=== PATIENT | male | born 1955 | race African-American/Black ===

== ENCOUNTER 2017-07-27 21:54 | Emergency (ER) | payer OTHER ==
[~2017-07-27] VITALS: Ht 180.3 cm; Wt 67.8 kg
[~2017-07-27 21:54] MED LIST: CETI-203 PO; ERGO500027 PO; HYDR12.53 PO; LEVO750T5 PO; NITR0.4T SL; TRAM50TA PO
[2017-07-27 23:05] VITALS: BP 143/92
[2017-07-27] MEDS ORDERED: AZIT250T6 PO (23:29)
[2017-07-27] MEDS ORDERED: GUAI-108 PO (23:29)
[2017-07-27] MEDS ORDERED: AZITHROMYCIN 250 MG TABLET. PO ONE (23:30)
--- NOTE | 2017-07-27 23:30 | PHYS DOC ---
Past Medical History Past Medical History: CAD, Hypertension, [place], Other Additional Past Medical Histor: scoliosis, emphysema Past Surgical History: Other Additional Past Surgical Histo: cardiac cath with stent placement Alcohol Use: Occasionally Drug Use: Marijuana Adult General Chief Complaint Chief Complaint: Congestion HPI HPI 61-year-old male complaining of sinus congestion and pressure. He denies headache or stiff neck. Patient does report an occasional dry cough. He is concerned that he may have sinusitis. He describes the yellowy sinus discharge when he blows his nose. No fevers chills sweats or shaking chills Review of Systems Review of Systems Constitutional: Denies fever or chills [] Eyes: Denies change in visual acuity, redness, or eye pain [] HENT: Denies nasal congestion or sore throat [] Respiratory: Denies cough or shortness of breath [] Cardiovascular: No additional information not addressed in HPI [] GI: Denies abdominal pain, nausea, vomiting, bloody stools or diarrhea [] : Denies dysuria or hematuria [] Musculoskeletal: Denies back pain or joint pain [] Integument: Denies rash or skin lesions [] Neurologic: Denies headache, focal weakness or sensory changes [] Endocrine: Denies polyuria or polydipsia [] Current Medications Current Medications Current Medications Medications (Trade) Dose Ordered Sig/Osmani Start Time Stop Time Status Last Admin Dose Admin Azithromycin (Zithromax) 500 mg 1X ONCE 07/27/17 23:30 07/27/17 23:31 DC 07/27/17 23:47 500 MG Allergies Allergies Allergies Coded Allergies Type Severity Reaction Last Updated Verified No Known Drug Allergies 01/07/14 No Physical Exam Physical Exam Well-appearing patient no acute distress mild sinus tenderness frontal and maxillary sinuses. Supple neck normal oropharynx clear lungs regular rate and rhythm benign abdomen normal extremities Constitutional: Well developed, well nourished, no acute distress, non-toxic appearance. [] HENT: Normocephalic, atraumatic, bilateral external ears normal, oropharynx moist, no oral exudates, nose normal. [] Eyes: PERRLA, EOMI, conjunctiva normal, no discharge. [] Neck: Normal range of motion, no tenderness, supple, no stridor. [] Cardiovascular:Heart rate regular rhythm, no murmur [] Lungs & Thorax: Bilateral breath sounds clear to auscultation [] Abdomen: Bowel sounds normal, soft, no tenderness, no masses, no pulsatile masses. [] Skin: Warm, dry, no erythema, no rash. [] Back: No tenderness, no CVA tenderness. [] Extremities: No tenderness, no cyanosis, no clubbing, ROM intact, no edema. [] Neurologic: Alert and oriented X 3, normal motor function, normal sensory function, no focal deficits noted. [] Psychologic: Affect normal, judgement normal, mood normal. [] Current Patient Data Vital Signs Vital Signs Date Time Temp Pulse Resp B/P (MAP) Pulse Ox O2 Delivery O2 Flow Rate FiO2 07/27/17 23:05 101 18 143/92 (109) 100 Room Air 07/27/17 22:07 98.6 98.6 EKG EKG [] Radiology/Procedures Radiology/Procedures [] Course & Med Decision Making Course & Med Decision Making Pertinent Labs and Imaging studies reviewed. (See chart for details) Signs and symptoms consistent with sinusitis possibly bacterial. Zithromax initiated. Patient were to follow up with PCP and use [id number] decongestants. He is well appearing with unremarkable vitals. No further workup or treatment indicated patient agrees with outpatient follow-up and strict return precautions given [] Dragon Disclaimer Dragon Disclaimer This electronic medical record was generated, in whole or in part, using a voice recognition dictation system. Departure Departure Impression: Primary Impression: Sinusitis Additional Impression: Sinus congestion Disposition: HOME, SELF-CARE Condition: STABLE Referrals: NO PCP (PCP) Patient Instructions: Sinusitis Additional Instructions: You have sinusitis. It is possible this may be caused by a viral sinus infection however we are covering you for the possibility of a bacterial infection. Finish Zithromax as prescribed starting tomorrow. Counter decongestants as needed. Take Mucinex as prescribed to break up mucus. Drink plenty of fluids and follow-up with your doctor tomorrow. Return immediately for new severe or worsening symptoms Scripts Guaifenesin/Dextromethorphan (MUCINEX DM ER 600-30 MG TABLET) 1 Each Tab.er.12h 1 TAB PO PRN Q12HRS Y for CONGESTION, #20 TAB Prov: NED SOLITARIO MD 07/27/17 Azithromycin (AZITHROMYCIN TABLET) 250 Mg Tablet 1 PKG PO UD, #6 TAB Take 2 pills the first day and one pill a day for the following 4 days Prov: NED SOLITARIO MD 07/27/17 Problem Qualifiers NED SOLITARIO MD Jul 27, 2017 23:30
== END 2017-07-27 23:05 | disposition home or self-care (01) ==
LOC: ER 21:54
DX: J32.9 Chronic sinusitis, unspecified (principal); I25.10 Atherosclerotic heart disease of native coronary artery without angina pectoris; I10 Essential (primary) hypertension; I25.2 Old myocardial infarction; Z95.2 Presence of prosthetic heart valve
CPT/HCPCS: 99283; Q0144

== ENCOUNTER 2018-06-22 13:29 | Emergency (ER) | payer OTHER ==
[~2018-06-22] VITALS: Ht 180.3 cm; Wt 69.9 kg
[~2018-06-22 13:29] MED LIST changes: +AZIT250T6 PO; +GUAI-108 PO
[2018-06-22 14:19] LABS: BASO # 0.1 x10^3/uL (0.0-0.2); BASO % 1 % (0-3); EOS # 0.4 x10^3/uL (0.0-0.7); EOS % 8 % (0-3); HEMATOCRIT 37.8 % (39.0-53.0); HEMOGLOBIN 12.7 g/dL (13.0-17.5); LYMPH # 1.9 x10^3/uL (1.0-4.8); LYMPH % 43 % (24-48); MEAN CORPUSCULAR HEMOGLOBIN 31 pg (25-35); MEAN CORPUSCULAR HGB CONC 34 g/dL (31-37); MEAN CORPUSCULAR VOLUME 92 fL (79-100); MONO # 0.2 x10^3/uL (0.0-1.1); MONO % 6 % (0-9); NEUT # 1.9 x10^3uL (1.8-7.7); NEUT % 42 % (31-73); PLATELET COUNT 281 x10^3/uL (140-400); RED BLOOD COUNT 4.13 x10^6/uL (4.30-5.70); RED CELL DISTRIBUTION WIDTH 16.1 % (11.5-14.5); WHITE BLOOD COUNT 4.4 x10^3/uL (4.0-11.0)
--- NOTE | 2018-06-22 14:22 | RAD ---
CHEST PA LATERAL History: PATIENT PASSED OUT TWO DAYS AGO, LIGHT HEADED. Comparison: January 07, 2014 image is available, without corresponding report Heart size: Within normal limits. Jessica/mediastinum: Mild aortic tortuosity. Lungs: Mild air trapping. No focal infiltrate or consolidation. Pleura: No evidence of pleural effusion. Pneumothorax: None visualized Bones: Regional skeleton appears grossly intact. Miscellaneous: None Impression: Mild air trapping. No focal infiltrate. The appearance is similar to prior exam. Electronically signed by: Simon Esposito MD (06/22/2018 2:17 PM) [facility]
[2018-06-22 14:25] LABS: CALCIUM 9.1 mg/dL (8.5-10.1); GFR 91.9; POTASSIUM 4.1 mmol/L (3.5-5.1)
--- NOTE | 2018-06-22 14:39 | EKG ---
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
--- NOTE | 2018-06-22 14:51 | PHYS DOC ---
Past Medical History Past Medical History: CAD, COPD, Hypertension, [place], Other Additional Past Medical Histor: scoliosis, emphysema, GOUT Past Surgical History: Other Additional Past Surgical Histo: cardiac cath with stent placementX3 Alcohol Use: Occasionally Drug Use: Marijuana Adult General Chief Complaint Chief Complaint: CHEST PAIN HPI HPI Patient is a 62 year old male who presents to the ER for evaluation of recurrent syncopal episodes. Patient reports approximate 4 episodes of syncope in the past 3 weeks. Patient reports progressive dizziness and lightheadedness over the past 1 week. Patient denies any vertigo symptoms. Patient reports lightheadedness at rest. Patient denies any chest pain, palpitations. Patient states that he was seen by his PCP yesterday he recommended ER evaluation. Patient presents today. Pt reports generalized weakness. Last episode of syncope was approximately 4 days ago. Patient denies any injury from the episode. Pt is a poor historian. They have poor understanding of their past medical history and current medical conditions. They do not provide a clear timeline of events/history. Review of Systems Review of Systems Constitutional: Denies fever or chills [] Eyes: Denies change in visual acuity, redness, or eye pain [] HENT: Denies nasal congestion or sore throat [] Respiratory: Denies cough or shortness of breath [] Cardiovascular: No chest pain, no orthopnea, no lower extremity edema GI: Denies abdominal pain, nausea, vomiting, bloody stools or diarrhea [] : Denies dysuria or hematuria [] Musculoskeletal: Denies back pain or joint pain [] Integument: Denies rash or skin lesions [] Neurologic: Denies headache, focal weakness or sensory changes [] Endocrine: Denies polyuria or polydipsia [] All other systems were reviewed and found to be within normal limits, except as documented in this note. Allergies Allergies Allergies Coded Allergies Type Severity Reaction Last Updated Verified No Known Drug Allergies 01/07/14 No Physical Exam Physical Exam Constitutional: Well developed, well nourished, HENT: Normocephalic, atraumatic, Eyes: PERRLA, EOMI, Neck: Normal range of motion, no tenderness, supple, no stridor. [] Cardiovascular:Heart rate regular rhythm, no murmur [] Lungs & Thorax: Bilateral breath sounds clear to auscultation [] Abdomen: Bowel sounds normal, soft, no tenderness, no masses, no pulsatile masses. [] Skin: Warm, dry, no erythema, no rash. [] Extremities: No tenderness, no cyanosis, no clubbing, ROM intact, no edema. [] Neurologic: Alert and oriented X 3, normal motor function, normal sensory function, no focal deficits noted. Nerve II through XII intact bilaterally, cerebellar function intact with [id number] and [id number] bilaterally [] Psychologic: Affect normal, judgement normal, mood normal. [] Current Patient Data Vital Signs Vital Signs Date Time Temp Pulse Resp B/P (MAP) Pulse Ox O2 Delivery O2 Flow Rate FiO2 06/22/18 13:29 98.3 85 20 140/87 (104) 98 Room Air 98.3 Lab Values Laboratory Tests Test 06/22/18 13:47 06/22/18 15:30 White Blood Count 4.4 x10^3/uL (4.0-11.0) Red Blood Count 4.13 x10^6/uL (4.30-5.70) L Hemoglobin 12.7 g/dL (13.0-17.5) L Hematocrit 37.8 % (39.0-53.0) L Mean Corpuscular Volume 92 fL (79-100) Mean Corpuscular Hemoglobin 31 pg (25-35) Mean Corpuscular Hemoglobin Concent 34 g/dL (31-37) Red Cell Distribution Width 16.1 % (11.5-14.5) H Platelet Count 281 x10^3/uL (140-400) Neutrophils (%) (Auto) 42 % (31-73) Lymphocytes (%) (Auto) 43 % (24-48) Monocytes (%) (Auto) 6 % (0-9) Eosinophils (%) (Auto) 8 % (0-3) H Basophils (%) (Auto) 1 % (0-3) Neutrophils # (Auto) 1.9 x10^3uL (1.8-7.7) Lymphocytes # (Auto) 1.9 x10^3/uL (1.0-4.8) Monocytes # (Auto) 0.2 x10^3/uL (0.0-1.1) Eosinophils # (Auto) 0.4 x10^3/uL (0.0-0.7) Basophils # (Auto) 0.1 x10^3/uL (0.0-0.2) Sodium Level 138 mmol/L (136-145) Potassium Level 4.1 mmol/L (3.5-5.1) Chloride Level 104 mmol/L (98-107) Carbon Dioxide Level 30 mmol/L (21-32) Anion Gap 4 (6-14) L Blood Urea Nitrogen 12 mg/dL (8-26) Creatinine 1.0 mg/dL (0.7-1.3) Estimated GFR (Cockcroft-Gault) 91.9 Glucose Level 94 mg/dL (70-99) Calcium Level 9.1 mg/dL (8.5-10.1) Troponin I Quantitative < 0.017 ng/mL (0.000-0.055) Urine Collection Type Unknown Urine Color Yellow Urine Clarity Clear Urine pH 7.0 Urine Specific [place] >=1.030 Urine Protein Negative mg/dL (NEG-TRACE) Urine Glucose (UA) Negative mg/dL (NEG) Urine Ketones (Stick) Negative mg/dL (NEG) Urine Blood Negative (NEG) Urine Nitrite Negative (NEG) Urine Bilirubin Small (NEG) Urine Urobilinogen Dipstick 1.0 mg/dL (0.2 mg/dL) Urine Leukocyte Esterase Negative (NEG) Urine RBC 0 /HPF (0-2) Urine WBC 0 /HPF (0-4) Urine Squamous Epithelial Cells Occ /LPF Urine Bacteria 0 /HPF (0-FEW) Urine Mucus Marked /LPF Laboratory Tests 06/22/18 13:47 Laboratory Tests 06/22/18 13:47 EKG EKG Normal sinus rhythm, heart rate 80, no significant ST segment changes.[] Radiology/Procedures Radiology/Procedures CT Head [facility] [address] [place] [address] IMAGING REPORT Signed PATIENT: NANDINI BOND ACCOUNT: [id number] : 1955 LOCATION: ER AGE: 62 SEX: M EXAM STATUS: REG ER ORD. PHYSICIAN: SARAH HERNANDEZ DO REASON: dizziness PROCEDURE: CT HEAD WO CONTRAST CT HEAD WITHOUT CONTRAST 06/22/2018 2:50 PM Indication: PT STATES HE WAS SMOKING MARIJUANA 4 DAYS AGO WITH SYNCOPE AND CP NO CONTRST NO PREV Comparison: None available Procedure: Multidetector CT imaging of the head was performed without the administration of contrast. Findings: There is no evidence of acute intracranial hemorrhage. There is no evidence of acute territorial infarction. Please note that CT is limited for evaluation of acute ischemia. No mass effect or midline shift is identified . The ventricles and basilar cisterns have an appropriate appearance. No abnormal extra-axial fluid collections are seen. Near-total opacification of the left maxillary sinus is noted. Correlate with evidence of chronic sinusitis. No evidence of skull fracture is identified. Impression: 1.No evidence of acute intracranial abnormality 2. Near total opacification of the left maxillary sinus. Correlate with clinical evidence of chronic sinusitis CT DOSING PQRS STATEMENT: One or more of the following individualized dose reduction techniques were utilized for this examination: 1. Automated exposure control 2. Adjustment of the mA and/or kV according to patient size 3. Use of iterative reconstruction technique Electronically signed by: Boo Walker MD (06/22/2018 3:19 PM) [facility] DICTATED and SIGNED BY: BOO WALKER MD DATE: 06/22/181515 [] CXR [facility] [address] [place], [place] [id number] IMAGING REPORT Signed PATIENT: NANDINI BOND ACCOUNT: [id number] : 1955 LOCATION: ER AGE: 62 SEX: M EXAM STATUS: REG ER ORD. PHYSICIAN: SARAH HERNANDEZ DO REASON: weakness, syncope PROCEDURE: CHEST PA & LATERAL CHEST PA LATERAL History: PATIENT PASSED OUT TWO DAYS AGO, LIGHT HEADED. Comparison: January 07, 2014 image is available, without corresponding report Heart size: Within normal limits. Jessica/mediastinum: Mild aortic tortuosity. Lungs: Mild air trapping. No focal infiltrate or consolidation. Pleura: No evidence of pleural effusion. Pneumothorax: None visualized Bones: Regional skeleton appears grossly intact. Miscellaneous: None Impression: Mild air trapping. No focal infiltrate. The appearance is similar to prior exam. Electronically signed by: Simon Esposito MD (06/22/2018 2:17 PM) [facility] DICTATED and SIGNED BY: SIMON ESPOSITO MD DATE: 06/22/18 1416 Course & Med Decision Making Course & Med Decision Making Pertinent Labs and Imaging studies reviewed. (See chart for details) []Patient remained hemodynamically stable while in the ER. He has continued to have some mild dizziness. He has reassuring labs, chest x-ray, head CT. Recommended hospitalization for continued evaluation patient is refusing. Patient is agreeable to sign out AMA. Patient is not given any clear reason for why he is not willing to be admitted. Patient demonstrated clearly that he has capacity to make medical decisions. He is answering and asking questions appropriately during my interactions with him. He is alert and oriented and has no clinical signs of intoxication either by all, or other illicit drugs. I discussed the risks of leaving AMA including but not limited to , severe disability, loss of current Maisel, chronic pain, loss of organ. Patient could not be dissuaded from leaving AMA. He is agreeable to follow-up closely with his primary care doctor. I advised patient that despite remaining be happy to care for him should he return to our ER any other ER. ER return precautions were given. Patient verbalizes understanding. All cushions answered. Dragon Disclaimer Dragon Disclaimer This electronic medical record was generated, in whole or in part, using a voice recognition dictation system. Departure Departure Impression: Primary Impression: Syncope Additional Impression: Dizziness Disposition: 07 AGAINST MEDICAL ADVICE Condition: GUARDED Referrals: NO PCP (PCP) Patient Instructions: Dizziness Additional Instructions: Thank you for coming to [facility]. Please repeat the attached handouts. Please follow-up with your primary care physician. Return to the ER if your symptoms worsen or you have any other concerns. Problem Qualifiers SARAH HERNANDEZ DO Jun 22, 2018 14:51
--- NOTE | 2018-06-22 15:23 | RAD ---
CT HEAD WITHOUT CONTRAST 06/22/2018 2:50 PM Indication: PT STATES HE WAS SMOKING MARIJUANA 4 DAYS AGO WITH SYNCOPE AND CP NO CONTRST NO PREV Comparison: None available Procedure: Multidetector CT imaging of the head was performed without the administration of contrast. Findings: There is no evidence of acute intracranial hemorrhage. There is no evidence of acute territorial infarction. Please note that CT is limited for evaluation of acute ischemia. No mass effect or midline shift is identified . The ventricles and basilar cisterns have an appropriate appearance. No abnormal extra-axial fluid collections are seen. Near-total opacification of the left maxillary sinus is noted. Correlate with evidence of chronic sinusitis. No evidence of skull fracture is identified. Impression: 1.No evidence of acute intracranial abnormality 2. Near total opacification of the left maxillary sinus. Correlate with clinical evidence of chronic sinusitis CT DOSING PQRS STATEMENT: One or more of the following individualized dose reduction techniques were utilized for this examination: 1. Automated exposure control 2. Adjustment of the mA and/or kV according to patient size 3. Use of iterative reconstruction technique Electronically signed by: Boo Oliveira MD (06/22/2018 3:19 PM) [facility]
[2018-06-22 15:40] LABS: BILIRUBIN,URINE SMALL (NEG); CLARITY,URINE CLEAR; COLOR,URINE YELLOW; NITRITE,URINE NEGATIVE (NEG); PROTEIN,URINE NEGATIVE (NEG-TRACE)
[2018-06-22 15:49] LABS: BACTERIA,URINE 0 /HPF (0-FEW); RBC,URINE 0 /HPF (0-2); SQUAMOUS EPITHELIAL CELL,UR OCC /LPF; WBC,URINE 0 /HPF (0-4)
[2018-06-22 16:33] VITALS: BP 118/82
== END 2018-06-22 16:51 | disposition left against medical advice (07) ==
LOC: ER 13:29
DX: R55 Syncope and collapse (principal); R42 Dizziness and giddiness; R53.1 Weakness; I10 Essential (primary) hypertension; J44.9 Chronic obstructive pulmonary disease, unspecified; M10.9 Gout, unspecified; I25.10 Atherosclerotic heart disease of native coronary artery without angina pectoris; Z95.5 Presence of coronary angioplasty implant and graft; I25.2 Old myocardial infarction
CPT/HCPCS: 36415; 70450; 71046; 80048; 81001; 84484; 85025; 93005; 99285-25

== ENCOUNTER 2021-06-12 15:00 | Emergency (ER) | payer OTHER ==
[~2021-06-12] VITALS: Ht 180.3 cm; Wt 69.1 kg
[~2021-06-12 15:00] MED LIST changes: -HYDR12.53 PO; +HYDR12.575 PO; -NITR0.4T SL; +NITR0.4T24 SL
[2021-06-12 16:28] VITALS: BP 159/81
== END 2021-06-12 17:04 | disposition left against medical advice (07) ==
LOC: ER 15:00
DX: M54.2 Cervicalgia (principal); R51.9 Headache, unspecified; Z53.21 Procedure and treatment not carried out due to patient leaving prior to being seen by health care provider; V89.2XXA Person injured in unspecified motor-vehicle accident, traffic, initial encounter; Y93.I9 Activity, other involving external motion; Y92.89 Other specified places as the place of occurrence of the external cause; Y99.8 Other external cause status

== ENCOUNTER → 2022-03-19 | Outpatient (CLI) | payer OTHER ==
--- NOTE | 2022-03-19 15:02 | RAD ---
EXAMINATION: Upper and lower extremity pressure measurements of ankle/brachial index. INDICATION: Numbness in the feet. FINDINGS: The ankle/brachial index on the right side is 1.1,and on the left is 1.2. IMPRESSION: Normal [place], bilaterally. Electronically signed by: Kiel Burden MD (03/19/2022 3:00 PM) [id number]
== END ==
LOC: US 13:50
PROVIDERS: ATTEND Family Medicine
DX: R20.0 Anesthesia of skin (principal)
CPT/HCPCS: 93922